=== PATIENT | male | born 1995 | race Hispanic/Latino ===

== ENCOUNTER 2022-12-07 11:11 | Emergency (ER) | payer SELFPAY ==
[~2022-12-07] VITALS: Ht 165.1 cm; Wt 90.4 kg
[2022-12-07 12:45] VITALS: BP 127/82
== END 2022-12-07 12:53 | disposition home or self-care (01) | DRG 866 ==
LOC: ED 11:11
DX: B34.9 Viral infection, unspecified (principal); Z20.822 Contact with and (suspected) exposure to COVID-19